=== PATIENT | female | born 1950 | race Caucasian/White ===

== ENCOUNTER 2017-11-28 17:12 | Inpatient (IN) | payer MEDICARE, OTHER ==
[~2017-11-28] VITALS: Ht 170.2 cm; Wt 58.4 kg
[~2017-11-28 17:12] MED LIST: BUSP10TA11 PO; DIVA-81 PO; MIRT15TA PO; QUET25TA PO; [UNRECOGNIZED DRUG - CODE] BC
[2017-11-28] MEDS ORDERED: mag hydrox/Alum hydrox/simeth 30ml oral suspension PO PRN (17:50)
[2017-11-28] MEDS ORDERED: magnesium hydroxide 30ml (MOM) UD suspension PO PRN (17:50)
[2017-11-28] MEDS ORDERED: acetaminophen 325mg tablet PO PRN ×2 (17:50)
[2017-11-28] MEDS ORDERED: nicotine prolacrilex 2mg gum BC PRN (18:05)
[2017-11-28 19:33] VITALS: BP 160/94
[2017-11-28] MEDS ORDERED: busPIRone 15mg tablet PO SCH (20:00)
[2017-11-28] MEDS: hydrOXYzine 25 MG tablet PO PRN (20:09)
[2017-11-28] MEDS ORDERED: QUEtiapine 25mg tablet PO SCH ×2 (21:00)
[2017-11-28] MEDS ORDERED: divalproex sod 250mg ER (24-hour) tablet PO SCH ×2 (21:00)
[2017-11-28] MEDS ORDERED: mirtazapine 15mg tablet PO SCH ×2 (21:00)
[2017-11-28] MEDS: busPIRone 15mg tablet PO SCH (21:31)
[2017-11-28] MEDS: traZODone 50mg tablet PO PRN (21:32)
[2017-11-29] MEDS: [UNRECOGNIZED DRUG - OTHER] PO SCH (08:00)
[2017-11-29] MEDS ORDERED: divalproex sod 250mg ER (24-hour) tablet PO SCH ×2 (08:00)
[2017-11-29 08:09] LABS: CHOL/HDL RATIO 3.8 (0.00-4.99); CHOLESTEROL 195 MG/DL (0-200); HDL CHOLESTEROL 52 MG/DL (35-60); LDL CHOLESTEROL 119 MG/DL (50-100); TRIGLYCERIDES 152 MG/DL (20-135)
[2017-11-29 08:29] LABS: HEMOGLOBIN A1C 5.6 % (4.5-6.2)
[2017-11-29] MEDS: busPIRone 15mg tablet PO SCH ×2 (08:46→22:03)
[2017-11-29] MEDS: gabapentin 100mg capsule PO SCH (12:22)
[2017-11-29 15:00] VITALS: BP 147/83
[2017-11-29] MEDS: LORazepam 0.5 MG tablet PO PRN ×2 (16:19→20:42)
[2017-11-29 19:56] VITALS: BP 125/76
[2017-11-29] MEDS ORDERED: gabapentin 300mg capsule PO SCH (21:00)
[2017-11-29] MEDS ORDERED: mirtazapine 15mg tablet PO SCH (21:00)
[2017-11-29] MEDS: QUEtiapine 25mg tablet PO SCH (22:02)
[2017-11-29] MEDS: thiamine 100mg tablet PO SCH (22:03)
[2017-11-29] MEDS: metoprolol tartrate 12.5mg (1/2 tablet) PO SCH (22:03)
[2017-11-30] MEDS: folic acid 1mg tablet PO SCH (07:18)
[2017-11-30] MEDS: gabapentin 100mg capsule PO SCH (07:18)
[2017-11-30] MEDS: busPIRone 15mg tablet PO SCH ×2 (07:18→20:29)
[2017-11-30] MEDS: metoprolol tartrate 12.5mg (1/2 tablet) PO SCH ×2 (07:20→20:29)
[2017-11-30] MEDS: thiamine 100mg tablet PO SCH ×2 (07:20→20:30)
[2017-11-30] MEDS: [UNRECOGNIZED DRUG - OTHER] PO SCH (07:21)
[2017-11-30 08:08] VITALS: BP 133/82
[2017-11-30] MEDS: LORazepam 0.5 MG tablet PO PRN ×3 (09:03→20:01)
[2017-11-30] MEDS: gabapentin 300mg capsule PO SCH (12:51)
[2017-11-30 17:04] VITALS: BP 138/80
[2017-11-30 19:44] VITALS: BP 125/83
[2017-11-30] MEDS: mirtazapine 15mg tablet PO SCH (20:29)
[2017-11-30] MEDS: QUEtiapine 25mg tablet PO SCH (20:29)
[2017-11-30] MEDS: gabapentin 400mg capsule PO SCH (20:29)
[2017-11-30 23:00] VITALS: BP 133/69
[2017-12-01] MEDS: busPIRone 15mg tablet PO SCH ×2 (07:55→20:37)
[2017-12-01] MEDS: gabapentin 300mg capsule PO SCH ×2 (07:56→12:55)
[2017-12-01] MEDS: folic acid 1mg tablet PO SCH (07:56)
[2017-12-01] MEDS: thiamine 100mg tablet PO SCH ×2 (07:56→20:40)
[2017-12-01] MEDS: metoprolol tartrate 12.5mg (1/2 tablet) PO SCH ×2 (07:56→20:40)
[2017-12-01 08:00] VITALS: BP 122/73
[2017-12-01] MEDS: [UNRECOGNIZED DRUG - OTHER] PO SCH (08:00)
[2017-12-01] MEDS: LORazepam 0.5 MG tablet PO PRN (17:57)
[2017-12-01 20:00] VITALS: BP 157/90
[2017-12-01] MEDS: gabapentin 400mg capsule PO SCH (20:37)
[2017-12-01] MEDS: QUEtiapine 25mg tablet PO SCH (20:39)
[2017-12-01] MEDS: mirtazapine 15mg tablet PO SCH (20:39)
[2017-12-01] MEDS: traZODone 50mg tablet PO PRN (20:43)
[2017-12-02] MEDS: LORazepam 0.5 MG tablet PO PRN (03:09)
[2017-12-02 07:00] VITALS: BP 110/65
[2017-12-02] MEDS: thiamine 100mg tablet PO SCH ×2 (07:37→22:08)
[2017-12-02] MEDS: folic acid 1mg tablet PO SCH (07:37)
[2017-12-02] MEDS: metoprolol tartrate 12.5mg (1/2 tablet) PO SCH ×2 (07:37→22:07)
[2017-12-02] MEDS: busPIRone 15mg tablet PO SCH ×2 (07:37→22:07)
[2017-12-02] MEDS: gabapentin 300mg capsule PO SCH ×2 (07:37→12:41)
[2017-12-02] MEDS: [UNRECOGNIZED DRUG - OTHER] PO SCH (07:40)
[2017-12-02 08:17] VITALS: BP 110/65
[2017-12-02] MEDS: [UNRECOGNIZED DRUG - OTHER] PO SCH (09:53)
[2017-12-02 19:00] VITALS: BP 150/85
[2017-12-02] MEDS: mirtazapine 15mg tablet PO SCH (22:08)
[2017-12-02] MEDS: gabapentin 400mg capsule PO SCH (22:08)
[2017-12-02] MEDS: traZODone 50mg tablet PO SCH (22:08)
[2017-12-02] MEDS: QUEtiapine 25mg tablet PO SCH (22:09)
[2017-12-03 07:00] VITALS: BP 156/76
[2017-12-03 08:28] VITALS: BP 156/75
[2017-12-03] MEDS: thiamine 100mg tablet PO SCH ×2 (09:10→22:01)
[2017-12-03] MEDS: [UNRECOGNIZED DRUG - OTHER] PO SCH (09:10)
[2017-12-03] MEDS: busPIRone 15mg tablet PO SCH ×2 (09:10→22:01)
[2017-12-03] MEDS: metoprolol tartrate 12.5mg (1/2 tablet) PO SCH ×2 (09:10→22:01)
[2017-12-03] MEDS: gabapentin 300mg capsule PO SCH ×2 (09:10→22:02)
[2017-12-03] MEDS: folic acid 1mg tablet PO SCH (09:11)
[2017-12-03 19:00] VITALS: BP 146/81
[2017-12-03] MEDS: traZODone 50mg tablet PO SCH (22:01)
[2017-12-03] MEDS: mirtazapine 15mg tablet PO SCH (22:02)
[2017-12-04] MEDS: hydrOXYzine 25 MG tablet PO PRN ×2 (00:01→22:01)
[2017-12-04] MEDS ORDERED: QUEtiapine 25mg tablet PO ONE (01:00)
[2017-12-04 07:30] VITALS: BP 120/60
[2017-12-04 07:42] VITALS: BP 120/60
[2017-12-04] MEDS: gabapentin 100mg capsule PO SCH ×2 (07:44→12:37)
[2017-12-04] MEDS: metoprolol tartrate 12.5mg (1/2 tablet) PO SCH ×2 (07:46→22:00)
[2017-12-04] MEDS: busPIRone 15mg tablet PO SCH ×2 (07:46→22:00)
[2017-12-04] MEDS: [UNRECOGNIZED DRUG - OTHER] PO SCH (07:46)
[2017-12-04] MEDS: thiamine 100mg tablet PO SCH ×2 (07:46→22:00)
[2017-12-04] MEDS: folic acid 1mg tablet PO SCH (07:46)
[2017-12-04 19:00] VITALS: BP 140/81
[2017-12-04] MEDS: traZODone 50mg tablet PO SCH (22:00)
[2017-12-04] MEDS: gabapentin 300mg capsule PO SCH (22:00)
[2017-12-04] MEDS: mirtazapine 15mg tablet PO SCH (22:01)
[2017-12-04] MEDS: QUEtiapine 25mg tablet PO SCH (22:01)
[2017-12-05 07:43] VITALS: BP 133/74
[2017-12-05] MEDS: gabapentin 100mg capsule PO SCH ×2 (07:46→12:44)
[2017-12-05] MEDS: metoprolol tartrate 12.5mg (1/2 tablet) PO SCH ×2 (07:46→22:18)
[2017-12-05] MEDS: busPIRone 15mg tablet PO SCH ×2 (07:46→22:16)
[2017-12-05] MEDS: thiamine 100mg tablet PO SCH ×2 (07:47→22:17)
[2017-12-05] MEDS: folic acid 1mg tablet PO SCH (07:47)
[2017-12-05] MEDS: [UNRECOGNIZED DRUG - OTHER] PO SCH (07:47)
[2017-12-05 11:05] LABS: ALANINE AMINOTRANSFERASE 19 U/L (12-78); ALBUMIN 3.3 G/DL (3.4-5.0); ALKALINE PHOSPHATASE 93 IU/L (46-116); ANION GAP 8 (8-16); ASPARTATE AMINO TRANSFERASE 14 U/L (10-37); BILIRUBIN,TOTAL 0.2 MG/DL (0.1-1.0); BLOOD UREA NITROGEN 22 MG/DL (7-18); BUN/CREATININE RATIO 21.2 (6.6-38.0); CALCIUM 8.8 MG/DL (8.5-10.1); CHLORIDE 105 MMOL/L (99-107); CREATININE 1.04 MG/DL (0.40-0.90); GLUCOSE 97 MG/DL (70-104); POTASSIUM 4.6 MMOL/L (3.5-5.1); SODIUM 142 MMOL/L (135-145); TOTAL CARBON DIOXIDE 28.8 MMOL/L (24-32); TOTAL PROTEIN 6.6 G/DL (6.4-8.2); eGFR 53 ML/MIN
[2017-12-05 19:00] VITALS: BP 122/70
[2017-12-05] MEDS: hydrOXYzine 25 MG tablet PO PRN (19:36)
[2017-12-05] MEDS: gabapentin 300mg capsule PO SCH (22:15)
[2017-12-05] MEDS: traZODone 50mg tablet PO SCH (22:16)
[2017-12-05] MEDS: mirtazapine 15mg tablet PO SCH (22:16)
[2017-12-05] MEDS: QUEtiapine 25mg tablet PO SCH (22:17)
[2017-12-06 07:00] VITALS: BP 139/74
[2017-12-06] MEDS: gabapentin 100mg capsule PO SCH ×2 (07:27→12:53)
[2017-12-06] MEDS: metoprolol tartrate 12.5mg (1/2 tablet) PO SCH ×2 (07:28→20:17)
[2017-12-06] MEDS: folic acid 1mg tablet PO SCH (07:28)
[2017-12-06] MEDS: [UNRECOGNIZED DRUG - OTHER] PO SCH (07:28)
[2017-12-06] MEDS: busPIRone 15mg tablet PO SCH ×2 (07:28→20:17)
[2017-12-06] MEDS: thiamine 100mg tablet PO SCH ×2 (07:28→20:17)
[2017-12-06] MEDS: naltrexone 50mg tablet PO SCH (07:28)
[2017-12-06] MEDS ORDERED: GABA300C PO (09:17)
[2017-12-06] MEDS ORDERED: HYDR-3686 PO (09:17)
[2017-12-06] MEDS ORDERED: QUET25TA34 PO (09:17)
[2017-12-06] MEDS ORDERED: TRAZ-219 PO (09:17)
[2017-12-06] MEDS ORDERED: MIRT30TA8 PO (09:17)
[2017-12-06] MEDS ORDERED: NALT50TA PO (09:17)
[2017-12-06] MEDS ORDERED: GABA100C PO (09:17)
[2017-12-06] MEDS ORDERED: BUSP30TA2 PO (09:17)
[2017-12-06] MEDS: clotrimazole/betamethasone diproprion. cream 15gm TP SCH ×2 (14:17→20:17)
[2017-12-06 20:06] VITALS: BP 156/85
[2017-12-06] MEDS: traZODone 50mg tablet PO SCH (21:56)
[2017-12-06] MEDS: QUEtiapine 25mg tablet PO SCH (21:57)
[2017-12-06] MEDS: mirtazapine 15mg tablet PO SCH (21:57)
[2017-12-06] MEDS: gabapentin 300mg capsule PO SCH (21:57)
[2017-12-07 07:00] VITALS: BP 128/87
[2017-12-07] MEDS: gabapentin 100mg capsule PO SCH ×2 (07:56→12:46)
[2017-12-07] MEDS: busPIRone 15mg tablet PO SCH (07:56)
[2017-12-07] MEDS: metoprolol tartrate 12.5mg (1/2 tablet) PO SCH (07:56)
[2017-12-07] MEDS: folic acid 1mg tablet PO SCH (07:57)
[2017-12-07] MEDS: thiamine 100mg tablet PO SCH (07:57)
[2017-12-07] MEDS: [UNRECOGNIZED DRUG - OTHER] PO SCH (08:09)
[2017-12-07] MEDS: naltrexone 50mg tablet PO SCH (08:09)
[2017-12-07] MEDS: clotrimazole/betamethasone diproprion. cream 15gm TP SCH (08:10)
== END 2017-12-07 19:00 | disposition home or self-care (01) | DRG 885 ==
LOC: ADULT MH 17:12
PROVIDERS: ADMIT Psychiatry & Neurology Psychiatry; ATTEND Internal Medicine
DX: F33.2 Major depressive disorder, recurrent severe without psychotic features (principal); R45.851 Suicidal ideations; I10 Essential (primary) hypertension; F41.9 Anxiety disorder, unspecified; F10.20 Alcohol dependence, uncomplicated; Y90.9 Presence of alcohol in blood, level not specified; F17.210 Nicotine dependence, cigarettes, uncomplicated; B35.8 Other dermatophytoses; L40.9 Psoriasis, unspecified; Z71.41 Alcohol abuse counseling and surveillance of alcoholic; Z23 Encounter for immunization
CPT/HCPCS: 36415; 80053; 80061; 83036; 87070; 99285; Q0177